=== PATIENT | female | born 1960 | race Caucasian/White ===

== ENCOUNTER 2016-07-12 10:37 | Emergency (ER) | payer OTHER ==
[~2016-07-12] VITALS: Ht 152.4 cm; Wt 95.4 kg
[~2016-07-12 10:37] MED LIST: ATOR-22 PO; BUPR-79 PO; BYTI10 SC; CLON1TAB3 PO; EFFSR150 PO; GLIM4TAB2 PO; INSDGI SC; PRLSR20 PO; PRN10125 PO
[2016-07-12 10:40] VITALS: TEMP 36.8; Ht 152.4 cm; Wt 95.4 kg
[2016-07-12] MEDS ORDERED: ONDANSETRON INJ 2 MG/ML 2 ML VIAL IV STA (11:04)
[2016-07-12] MEDS ORDERED: SODIUM CHLORIDE 0.9% 1000ML 1,000 ML IV STA (11:04)
[2016-07-12] MEDS ORDERED: MoRPHine SULFATE 4 MG/ML 1 ML CARP\\VIAL IV STA (11:04)
[2016-07-12 11:23] LABS: BASO % 0.5 %; BASO ABS # 0.03 K/uL (0-0.2); COMPLETE YES; EOS % 2.1 %; HEMATOCRIT 38.5 % (37-47); IG% 0.3 %; LYMPH % 39.6 %; MEAN CELL VOLUME 88.9 fL (80-100); MEAN CORPUSCULAR HEMOGLOBIN 30.5 pg (25-34); MEAN CORPUSCULAR HGB CONC 34.3 g/dl (32-36); MEAN PLATELET VOLUME 9.6 fL (7.4-10.4); MONO % 4.4 %; NEUT % 53.1 %; PLATELET COUNT 345 K/uL (130-400); RED BLOOD COUNT 4.33 M/uL (4.2-5.4); WHITE BLOOD COUNT 6.57 K/uL (4.8-10.8)
[2016-07-12 11:26] LABS: URINE APPEARANCE CLOUDY (CLEAR); URINE BILIRUBIN NEG (NEG); URINE COLOR DK YELLOW; URINE EPITHELIAL CELL AUTO >30 /lpf (0-5); URINE NITRITE NEG (NEG); URINE SPECIFIC GRAVITY 1.026 (1.000-1.030); UROBILINOGEN NEG (NEG)
[2016-07-12 11:30] LABS: MANUAL MICROSCOPIC REQUIRED? NO; REVIEW REQ? NO
[2016-07-12 11:35] LABS: CALCIUM 9.6 mg/dl (8.5-10.1)
[2016-07-12 11:37] LABS: ALT/SGPT 26 U/L (12-78); BLOOD UREA NITROGEN 16 mg/dl (7-18); BUN/CREATININE RATIO 16.5 (10-20); CARBON DIOXIDE 29 mmol/L (21-32); CHLORIDE 104 mmol/L (98-107); CREATININE 0.95 mg/dl (0.60-1.20); GLUCOSE 108 mg/dl (70-99); POTASSIUM 3.9 mmol/L (3.5-5.1); SODIUM 140 mmol/L (136-145)
[2016-07-12 11:40] LABS: ALKALINE PHOSPHATASE 126 U/L (45-117); AST/SGOT 20 U/L (15-37)
--- NOTE | 2016-07-12 11:44 | DIAGNOSTIC IMAGING REPORT ---
CT SCAN OF THE ABDOMEN AND PELVIS WITHOUT IV CONTRAST CLINICAL HISTORY: Flank pain and hematuria. COMPARISON STUDY: Abdominal ultrasound dated 03/01/2009. Pelvic ultrasound dated 03/01/2009. TECHNIQUE: CT scan of the abdomen and pelvis is performed from the lung bases to the proximal femora. Images are reviewed in the axial, sagittal, and coronal planes. IV contrast was not administered for this examination as per the referring clinician. Automated dose control exposure was utilized. CT DOSE: 1725.88 mGy.cm FINDINGS: Lung bases: The heart is normal in size and without pericardial effusion. There is an indeterminant 3 mm right middle lobe pulmonary nodule seen on image #8. The lung bases are otherwise clear. There is a small hiatal hernia. Liver: The unenhanced liver is normal in size, contour, and attenuation. There is no intrahepatic biliary ductal dilatation. Gallbladder: Surgically absent noting clips in the gallbladder fossa. Spleen: Normal in size and attenuation. Pancreas: Unremarkable. Adrenal glands: Unremarkable. Kidneys: The unenhanced kidneys demonstrate cortical atrophy and are without hydronephrosis. There are no renal calculi identified. A 13 mm exophytic cyst arises from the left upper pole. Abdominal vasculature: The abdominal aorta is normal in course and caliber. Bowel: The small bowel and colon are normal in course and caliber. There is mild colonic diverticulosis without CT evidence of acute diverticulitis. Mild to moderate colonic fecal retention is observed. The appendix is well-visualized and normal. Peritoneum: There is no intraperitoneal free air or abdominal ascites. There is a fat-containing umbilical hernia. Lymphadenopathy: None. Pelvic viscera: The bladder is decompressed and grossly unremarkable. The uterus and adnexa are normal as visualized. Skeletal structures: The skeletal structures are osteopenic. Sclerotic change is noted in the sacroiliac joints and pubic symphysis. No lytic or blastic lesions are seen. IMPRESSION: 1. There are no acute infectious or inflammatory findings in the abdomen or pelvis. 2. Mild colonic diverticulosis without CT evidence of acute diverticulitis. Electronically signed by: Ronald Osborn M.D. 07/12/2016 11:42 AM Dictated Date/Time: 07/12/2016 11:36 AM
[2016-07-12] MEDS ORDERED: HYDR-5688 PO (12:07)
[2016-07-12] MEDS ORDERED: VENL150C PO (12:15)
[2016-07-12] MEDS ORDERED: LSN/10125 PO (12:15)
[2016-07-12] MEDS ORDERED: INSPMPRG (12:15)
[2016-07-12 12:23] VITALS: BP 104/85; PULSE 78; O2SAT 98
--- NOTE | 2016-07-12 17:14 | EMERGENCY ROOM VISIT NOTE ---
ED Visit Note First contact with patient: 10:45 Chief Complaint: Right flank pain. History of Present Illness: Ms. Merritt is a 55-year-old white female who ambulates into the ED complaining of right flank pain. Patient reports 4 days ago she developed right flank pain while sitting on the floor landing with her grandchildren. She reports initially her pain was mild and gradually increased in intensity. Currently she describes her pain as a sharp cramping sensation. Her pain is constant but does wax and wane in intensity. She currently rates her discomfort 5/10. Her pain worsens with palpation just inferior to the right CVA , moving from the lying to sitting position and reverse and generalized body movements. She has mild relief while at rest. She has been using over-the- counter medications without relief of her discomfort. Associated with her discomfort she reports she is nauseated but has not vomited. She denies any recent direct trauma to this area and does not remember any repetitive leg trauma. She denies any previous musculoskeletal back injury/ surgeries. Additionally she denies fevers, chills, sweats, skin eruptions, skin color changes, upper respiratory tract symptoms, cough, wheezing, shortness of breath , chest pain, abdominal pain, urinary symptoms, hematuria, bowel and bladder dysfunction, genital paresthesias, lower extremity weakness/numbness/tingling, vaginal bleeding, vaginal discharge. Review of Systems: As noted above in history of present illness. All body systems were reviewed and found to be negative as noted above. Past Medical History: Diabetes. Current Medications: Medications Dose Route/Sig Max Daily Dose Days Date Category Dose Instructions Effexor Xr (Venlafaxine Hcl) 150 Mg Cap 1 Cap PO DAILY 30 07/12/16 Reported Lisinopril/Hctz 10/12.5 Mg (HCTZ/Lisinopril) 1 Ea Tab 1 Tab PO DAILY 07/12/16 Reported Insulin Regular Pump (Insulin Human Regular) Pump 1 Ea N/A UD 07/12/16 Reported [place] 5MG/325MG (Acetaminophen/Hydrocodone Bitart) Tab 1-2 Tablet PO Q6H PRN 07/12/16 Rx For Initial Treatment [place] (Exenatide) 10 Mcg/0.04 Ml Inj 10 Mcg SC BID 10/20/15 Reported PATIENT SAYS SHE USES 10 MCG IN THE MORNING AND BEFORE LUNCH Glimepiride 4 Mg Tab 10 Mg PO QAM 90 10/20/15 Reported Lipitor (Atorvastatin Calcium) 20 Mg Tab 20 Mg PO HS 07/09/11 Reported Wellbutrin Sr (Bupropion HCl) 150 Mg Ertab 150 Mg PO BID 03/08/09 Reported Klonopin (Clonazepam) 1 Mg Tab 1 Mg PO HS PRN 03/08/09 Reported Prilosec (Omeprazole) 20 Mg Capcr 20 Mg PO DAILY 03/08/09 Reported Allergies to Medications: Patient denies. Social History: Patient is currently employed; she feels safe in her home environment; she denies tobacco use. Physical Examination: Vital Signs: Date Time Temp Pulse Resp B/P Pulse Ox O2 Delivery O2 Flow Rate FiO2 07/12/16 12:23 78 104/85 98 07/12/16 11:52 84 07/12/16 10:40 36.8 89 18 151/83 97 Room Air GENERAL: 55-year-old female in mild to moderate distress due to pain, nontoxic- appearing, afebrile and hemodynamically stable. NEUROLOGICAL: Awake, alert and oriented to person, place and time. Answering questions appropriately and following commands. Normal gait. Good hand eye coordination. No focal motor or sensory deficits. SKIN: Warm, dry and pink. No soft tissue eruptions or trauma noted. HEENT: Atraumatic and normocephalic. PERRLA. Sclera white and conjunctiva pink. No drainage from naris. Oral cavity moist and pink. Pharynx is nonerythematous or edematous. Speech normal. No lymphadenopathy. Trachea midline. No jugular venous distention. BACK: No tenderness over the bony thoracic and lumbar spine. Moderate to severe tenderness just inferior to the right CVA. No palpable spasm. No CVA tenderness. Decreased range of motion in the waist due to pain. Negative straight leg raise test. THORAX: Lungs sounds are clear to auscultation and equal bilaterally with symmetrical chest wall. No wheezing, rales or rhonchi. No crepitus, tenderness , subcutaneous air or deformities noted. HEART: Regular rate and rhythm. No gallops, rubs or murmurs are appreciated. ABDOMEN: Flat, soft and nontender. Positive bowel sounds in all quadrants. No guarding, rigidity or organomegaly. EXTREMITIES: Moves all extremities well on command and with purpose. All distal neurovascular statuses are intact and equal bilaterally. No calf tenderness or cords. 4/5 muscle strength in all movements of the hips, knees and ankles. 2+ patellar and Achilles tendon reflexes is intact and equal bilaterally. She was able to distinguish light sensations through all dermatomes. Capillary refill was brisk. ED Course: Patient is assessed as noted above. Laboratory Testing: Test 07/12/16 11:04 07/12/16 11:10 Range/Units Bedside Glucose 111 70-90 mg/dl White Blood Count 6.57 4.8-10.8 K/uL Red Blood Count 4.33 4.2-5.4 M/uL Hemoglobin 13.2 12.0-16.0 g/dL Hematocrit 38.5 37-47 % Mean Corpuscular Volume 88.9 80-100 fL Mean Corpuscular Hemoglobin 30.5 25-34 pg Mean Corpuscular Hemoglobin Concent 34.3 32-36 g/dl Platelet Count 345 130-400 K/uL Mean Platelet Volume 9.6 7.4-10.4 fL Neutrophils (%) (Auto) 53.1 % Lymphocytes (%) (Auto) 39.6 % Monocytes (%) (Auto) 4.4 % Eosinophils (%) (Auto) 2.1 % Basophils (%) (Auto) 0.5 % Neutrophils # (Auto) 3.49 1.4-6.5 K/uL Lymphocytes # (Auto) 2.60 1.2-3.4 K/uL Monocytes # (Auto) 0.29 0.11-0.59 K/uL Eosinophils # (Auto) 0.14 0-0.5 K/uL Basophils # (Auto) 0.03 0-0.2 K/uL RDW Standard Deviation 44.5 36.4-46.3 fL RDW Coefficient of Variation 13.5 11.5-14.5 % Immature Granulocyte % (Auto) 0.3 % Immature Granulocyte # (Auto) 0.02 0.00-0.02 K/uL Urine Color DK YELLOW Urine Appearance CLOUDY CLEAR Urine pH 5.0 4.5-7.5 Urine Specific [place] 1.026 1.000-1.030 Urine Protein NEG NEG Urine Glucose (UA) NEG NEG Urine Ketones TRACE NEG Urine Occult Blood NEG NEG Urine Nitrite NEG NEG Urine Bilirubin NEG NEG Urine Urobilinogen NEG NEG Urine Leukocyte Esterase SMALL NEG Urine WBC (Auto) 1-5 0-5 /hpf Urine RBC (Auto) 0-4 0-4 /hpf Urine Hyaline Casts (Auto) 1-5 0-5 /lpf Urine Epithelial Cells (Auto) >30 0-5 /lpf Urine Bacteria (Auto) 1+ NEG Sodium Level 140 136-145 mmol/L Potassium Level 3.9 3.5-5.1 mmol/L Chloride Level 104 98-107 mmol/L Carbon Dioxide Level 29 21-32 mmol/L Anion Gap 7.0 3-11 mmol/L Blood Urea Nitrogen 16 7-18 mg/dl Creatinine 0.95 0.60-1.20 mg/dl Est Creatinine Clear Calc Drug Dose 70.0 ml/min Estimated GFR () 78.7 Estimated GFR (Non- 67.9 BUN/Creatinine Ratio 16.5 10-20 Random Glucose 108 70-99 mg/dl Calcium Level 9.6 8.5-10.1 mg/dl Total Bilirubin 0.4 0.2-1 mg/dl Direct Bilirubin < 0.1 0-0.2 mg/dl Aspartate Amino Transf (AST/SGOT) 20 15-37 U/L Alanine Aminotransferase (ALT/SGPT) 26 12-78 U/L Alkaline Phosphatase 126 45-117 U/L Total Protein 8.4 6.4-8.2 gm/dl Albumin 4.0 3.4-5.0 gm/dl Lipase 167 73-393 U/L Noncontrast Abdominal/Pelvic CT: Was reviewed by myself and read by the radiologist and shows no acute infectious or inflammatory changes in the abdomen or pelvis. Mild colonic diverticulosis without signs of acute diverticulitis. Mild to moderate fecal retention was noted. Patient is assessed as noted above. Patient was hydrated with normal saline and received 4 mg of morphine IV and 4 mg of Zofran IV for her symptoms. Patient was reassessed multiple times during her stay in the emergency department. Patient's case was reviewed with Dr. Pickard; we agreed on diagnostic approach , treatment, disposition and plan. Patient was educated about tonight's findings and instructed on her treatment plan; she verbalizes understanding and agreement with this plan. Clinical Impression: Right sided thoracic back pain. Decision-Making: Initially my differential diagnosis I considered kidney stone, pyelonephritis, musculoskeletal disorder, pancreatitis, bowel obstruction and other causes. Disposition: Patient discharged home in stable condition; prior to departure she was reassessed and rated her discomfort 04/03. Plan: Patient was placed on a sliding scale of pain medications including ibuprofen, acetaminophen and [place]; appropriate precautions were discussed with the patient concerning narcotic use. Patient was encouraged to use an [id number] stool softener to prevent constipation. Patient was encouraged to stay well-hydrated. Additionally patient was encouraged to use ice on her areas of pain. Patient was encouraged to follow-up with family physician for recheck. Patient was encouraged return to the ED for worsening/uncontrolled pain, fevers , chills, skin eruptions, skin color changes, abdominal pain, vomiting, bloody stools, bloody urine, leg weakness/numbness/tingling or any new/concerning symptoms.
== END 2016-07-12 12:24 | disposition home or self-care (01) ==
LOC: C.EDB 10:38
DX: M54.6 Pain in thoracic spine (principal); E11.9 Type 2 diabetes mellitus without complications; Z79.4 Long term (current) use of insulin; Z79.899 Other long term (current) drug therapy